=== PATIENT | female | born 1970 | race Two or more races ===

== ENCOUNTER → 2017-04-22 | Day surgery (SDC) | payer OTHER ==
[~2017-04-22] VITALS: Ht 182.9 cm; Wt 110.0 kg
[~2017-04-22] MED LIST: CIPRO500 MG PO; CLARITIN10 M2 PO; FLORASTOR250 MG PO; JUNEL FE 1 MG-1 EACH PO; PERCOCET 5-3251 EACH PO; PIRMELLA PO; PROTONIX40 MG PO; URSODIOL 250 MG PO; URSODIOL250 MG PO
== END | disposition disaster alternative care site (69) ==
LOC: GPOC 04-21 17:00 → GEND 04-21 17:00 → EDSTATUS 04-21 17:00 → GEND 08:06
PROC: 0FC98ZZ Extirpation of Matter from Common Bile Duct, Via Natural or Artificial Opening Endoscopic (ICD-10-PCS; principal; 2017-04-22)
PROC: 0FPD8DZ Removal of Intraluminal Device from Pancreatic Duct, Via Natural or Artificial Opening Endoscopic (ICD-10-PCS; 2017-04-22)
DX: Z46.59 Encounter for fitting and adjustment of other gastrointestinal appliance and device (principal); K83.8 Other specified diseases of biliary tract; Z90.49 Acquired absence of other specified parts of digestive tract; Z98.890 Other specified postprocedural states
CPT/HCPCS: J2001; J3010; J7030